=== PATIENT | male | born 1975 | race Caucasian/White ===

== ENCOUNTER 2024-06-17 10:23 | Emergency (ER) | payer BC ==
[2024-06-17 11:01] VITALS: BP 120/84; O2SAT 97
[2024-06-17] MEDS: PROPARACAINE 0.5% OPHTH DROPS 15 ML RIGHTEYE STA (11:10)
--- NOTE | 2024-06-17 11:19 | ED Physician Documentation ---
PD HPI HEENT - Stated complaint Stated Complaint: RT EYE FOB - Chief complaint Chief Complaint: Heent - History obtained from History obtained from: Patient (Foreign body sensation in the right eye that started while cutting branches at home just prior to arrival. No vision deficit.) PD PAST MEDICAL HISTORY - Past Medical History Past Medical History: No - Past Surgical History Past Surgical History: Yes HEENT: Other - Present Medications Home Medications: Ambulatory Orders Medication Instructions Recorded Confirmed Erythromycin Base [Erythromycin 1 appful OP 5XD 7 Days #1 gm 06/17/24 Ophthalmic Ointment] - Allergies Allergies/Adverse Reactions: Allergies Allergy/AdvReac Type Severity Reaction Status Date / Time No Known Drug Allergies Allergy Verified 06/17/24 10:52 - Social History Does the pt smoke?: No Smoking Status: Never smoker Does the pt drink ETOH?: No Does the pt have substance abuse?: No - Immunizations Immunizations are current?: Yes PD ED PE NORMAL - Vitals Vital signs reviewed: Yes - General General: Alert and oriented X 3 - HEENT HEENT: PERRL, EOMI, Other (He appears uncomfortable and is keeping the eye closed. He is pain-free after proparacaine. Thorough examination of the cornea, conjunctive a, and fornices show no foreign body and there is no fluorescein uptake.) Results - Vitals Vitals: Vital Signs - 24 hr 06/17/24 10:49 Temperature 36.8 C Heart Rate 82 Respiratory 20 Rate Blood Pressure 120/84 H O2 Saturation 97 PD Medical Decision Making - ED course ED course: On the initial go round I did not see a foreign body nor any fluorescein uptake. I flushed his eyes and allow him to sit for a while to let the proparacaine wear off. Subsequently went back and his symptoms were much better but still mccarty d a mild foreign body sensation. Reexamination demonstrated a tiny area of fluorescein uptake at about 5:00 on the cornea. There was no foreign body. He notes that he does have LASEK surgery scheduled in 5 days. I admitted I did not know if the current issue would delay that but he was encouraged to call his feed research aide on Wednesday. Departure - Departure Disposition: Home, Self Care Clinical Impression: Corneal abrasion, right Qualifiers: Encounter type: initial encounter Qualified Code(s): S05.01XA - Injury of conjunctiva and corneal abrasion without foreign body, right eye, initial encounter Condition: Good Record reviewed to determine appropriate education?: Yes Instructions: ED Eye Injury Corneal Abrasion Prescriptions: Erythromycin Base [Erythromycin Ophthalmic Ointment] 1 appful OP 5XD 7 Days #1 gm Comments: You have a small corneal abrasion. You should call your feed research aide on Wednesday, I do not know if this will delay your Lasix surgery scheduled for next week. But your symptoms should be mostly gone over the next 48 hours or so. Return if worse. Forms: PCP List
[2024-06-17] MEDS: ERYTHROMYCIN OPHTH OINT 1 GM TUBE RIGHTEYE STA (11:49)
== END 2024-06-17 11:55 | disposition home or self-care (01) ==
LOC: ED 10:23
DX: S05.01XA Injury of conjunctiva and corneal abrasion without foreign body, right eye, initial encounter (principal); W44.F9XA Other object of natural or organic material, entering into or through a natural orifice, initial encounter; Y93.H2 Activity, gardening and landscaping
CPT/HCPCS: 99283; 99284; J3490